=== PATIENT | male | born 1970 | race Caucasian/White ===

== ENCOUNTER 2018-03-25 10:01 | Inpatient (IN) ==
[2018-03-25] MEDS ORDERED: Naloxone 0.4 MG/ML INJ IVP PRN (12:55)
[2018-03-25] MEDS ORDERED: VANCOMYCIN IVPB SCH (13:00)
[2018-03-25] MEDS ORDERED: SODIUM CHLORIDE 0.9% IVPB SCH (13:00)
[2018-03-25] MEDS ORDERED: D5% in Water 1,000 ML IVC PRN (13:09)
[2018-03-25] MEDS ORDERED: Dextrose Gel 15 GM/37.5 ML TUBE PO PRN ×2 (13:09)
[2018-03-25] MEDS ORDERED: *HR* Dextrose 50 % in Water (Syg) 50 ML SYRINGE IVP PRN (13:09)
[2018-03-25] MEDS ORDERED: 0.9 % Sodium Chloride 1,000 ML IVC SCH (13:15)
--- NOTE | 2018-03-25 13:55 | Neurology - Consult Note ---
Date of Encounter: 03/26/18 Time of Encounter: 12:54 Assessment and Plan (1) Altered mental status Current Visit: Yes Status: Acute Patient continued to have mental status changes without any focal motor weakness on examination examined remains quite perplexing due to the fact that he does able to localize noxious stimuli also grimaces to the deep pain he did wake up from ammonia capsule yesterday but is still not following any commands and not responding to verbal stimuli. Even if it is metabolic toxic encephalopathy the pattern does not seems to fit to it on the other hand if it is a complex partial seizures or nonconvulsive seizures he should not be able to respond the way he is responding now but cannot be completely exclude eluded unless he had an EEG unfortunately due to the malfunction of EEG machine would not be able to do an EEG. I would recommend getting an MRI of the brain to exclude any other intracranial etiology and if all is negative and even after the dialysis if it did not show any improvement perhaps need repeat spinal tap at that was unsuccessful attempt earlier because of the movement as he continued to be moving now and I do not think that it be possible without sedation at the bedside. As currently he is moving a lot do not think we be able to do a bedside LP discussed with the nephrology they are going to dialyze him but at the same time we will try to get an MRI of the brain. r Qualifiers: Altered mental status type: unspecified Qualified Code(s): R41.82 - Altered mental status, unspecified History of Present Illness HPI: Mr. Esteban is a 48 year old male PMH of ESRD-on dialysis, dyslipidemia, hypertension admitted as being found on the floor at his home by his on monday afternoon. History was provided by as patient is arousable but very difficult to arouse and not following commands. per his , patient was in his usual state of health, got dialysis on monday and was watching tv on couch on monday afternoon, she says she left him for like an hour and came back to find him lying flat on the floor barely arousable. sugar was 68 per EMS. He was taken to [facility] where he had CT and received narcan with no improvement. He also got acyclovir and zosyn. An LP was attempted unsuccessfully. CT head was negative. He is able to protect his airways. pt remain non verbal but woke up with ammonia capsule but still did not respond to verbal , and didnt follow any commands Past Med Surg Social Fam HX - Past Medical History Medical history: diabetes, GERD, hyperlipidemia, hypertension, renal disease Additional medical history: KIDNEY FAILURE. CHEWS TOBACCO. STRESS TEST. CATARACTS. GLAUCOMA. DIALYSIS Psychiatric history: anxiety, depression - Past Surgical History Surgical History: other Additional surgical history: fistula. eye surgery, blind in R eye. COLONOSCOPY. L ARM AV ACCESS. EYE INJECTIONS - Social History Smoking Status: Never smoker Smokeless Tobacco Status: No Alcohol use: rarely Drug use: none Medications and Allergies Insulin ASPART [NovoLOG] 0 unit SQ AD PRN 09/25/15 [History] Atorvastatin [Lipitor] 40 mg PO HS 03/26/18 [History] Hydralazine HCl 100 mg PO TID 03/26/18 [History] Losartan Potassium [Cozaar] 100 mg PO DAILY 03/26/18 [History] NIFEdipine [Nifedipine ER] 60 mg PO BID 03/26/18 [History] 3 Allergy/AdvReac Type Severity Reaction Status Date / Time Amoxicillin Allergy Hives Verified 06/15/15 11:48 ROS unobtainable: due to mental status All Systems: The remainder of the systems were reviewed and are negative Physical Examination - Vital Signs Vital Signs: Initial Vital Signs Temp Pulse Resp BP Pulse Ox 98.4 F 103 14 155/93 94 03/25/18 12:45 03/25/18 12:45 03/25/18 12:45 03/25/18 12:45 03/25/18 12:45 - Exam Exam: GENERAL: Comfortable in no acute distress, laying in bed without any acute distress does not respond to verbal stimuli HEENT: Normal LUNGS: CTA HEART: RRR, S1 S2 Audible, no murmur EXTREMITIES: No Pedal edema. DETAILED NEUROLOGICAL EXAMINATION: MENTAL STATUS: Awake but does not respond to any verbal stimuli open eyes to the deep pain he did woke up with ammonia capsule opened eyes but did not responded. Pupils are equal and reactive no facial asymmetry. Cranial Nerve Examination: CN - II: Visual Acuity, Field of Vision Normal, Fundus examination: No disk edema, Pupils- size shape reaction to light and accommodation: All normal. CN III, IV, : External ocular movements were intact, Pupils were reactive, Nodrooping of the eyelids CN V: Sensation over the face to light touch and pinprick all normal. Corneal reflexes not tested, jaw jerk normal. CN VII: No facial asymmetry, no flattening of nasolabial folds, no difficulty in closing the eyes, no loss of forehead wrinkles, no difficulty in eye-closure, frowning raising eyebrows. Moving all 4 extremities to the deep pain and is a spontaneously as well as. - Constitutional General appearance: comfortable - Neurologic Reflex and gait examination: intact Reflexes: Biceps: 1+, Triceps: 1+, Brachioradialis: 1+, Patella: 1+, Achilles: 1 + Mental Status Examination: awake, localizes noxious stimulation, no spontaneous eye opening to voice or tactile stimulation, grimmacing, inattentive Cranial nerve examination: PERRL, EOMI, no facial asymmetry is present Results - Laboratory Findings CBC and BMP: 03/26/18 03:42 03/26/18 03:42 Consult Discharge Plan - Plan Referrals: Jud Diaz, DIRECTOR OF STUDENT AFFAIRS [Primary Care Provider] -
[2018-03-25] MEDS ORDERED: Levofloxacin 750 MG/150 ML 750 MG/150 ML BAG IVPB SCH (14:00)
--- NOTE | 2018-03-25 14:26 | Internal Med History&Physical ---
Date of Encounter: 03/25/18 Time of Encounter: 11:00 Internal Medicine - H&P: HPI Chief complaint: Altered mental status at home, found on the floor History of present illness: Mr. Esteban is a 48 year old male with pmh of ESRD-DD, dyslipidemia, hypertension presenting with complaints of being found on the floor at his home by his on monday. History was provided by as patient is arousable but very difficult to arouse and not following commands. per his , patient was in his usual state of health, got dialysis on monday and was watching tv on couch on monday, she says she left him for like an hour and came back to find him lying flat on the floor barely arousable. She recalls a similar episode about 5 years ago when he was hypoglycemic to 25 , but she says this time his sugar was 68 per EMS. she called 911 on finding him barely arousable. She says he doesn't take any drugs or alcohol. He was taken to [facility] where he was treated supportively, received narcan with no improvement in his status. He also got acyclovir and zosyn. An LP was attempted unsuccessfully. CT head was negative. HE was transferred here when he wasn't improving. HIs vitals are currently stable. He is able to protect his airways. HE was seen by neurology in ICU who was able to arouse him successfully by breaking an ammonium pill and making him sniff it. he is however still lethargic and non verbal Past Med Surg Social Fam HX - Past Medical History Medical history: diabetes, GERD, hyperlipidemia, hypertension, renal disease Additional medical history: KIDNEY FAILURE. CHEWS TOBACCO. STRESS TEST. CATARACTS. GLAUCOMA. DIALYSIS Psychiatric history: anxiety, depression - Past Surgical History Surgical History: other Additional surgical history: fistula. eye surgery, blind in R eye. COLONOSCOPY. L ARM AV ACCESS. EYE INJECTIONS - Social History Smoking Status: Never smoker Smokeless Tobacco Status: No Alcohol use: rarely Drug use: none Internal Medicine - H&P: Meds Atorvastatin [Lipitor] 20 mg PO HS 08/04/15 [History] Calcitriol [Rocaltrol] 0.25 mcg PO DAILY 08/04/15 [History] Carvedilol [Coreg] 25 mg PO BID 08/04/15 [History] Furosemide [Lasix] 20 mg PO BID 08/04/15 [History] Losartan [Cozaar] 100 mg PO DAILY 08/04/15 [History] hydrALAZINE [HydrALAZINE] 50 mg PO BID 08/04/15 [History] Insulin ASPART [NovoLOG] 0 unit SQ AD PRN 09/25/15 [History] 3 Allergy/AdvReac Type Severity Reaction Status Date / Time Amoxicillin Allergy Hives Verified 06/15/15 11:48 ROS unobtainable: due to mental status All Systems PM: A 10-system review of systems was performed and is negative for pertinent findings except as documented above in the HPI. - Constitutional Vitals: Temp Pulse Resp BP Pulse Ox 98.4 F 103 14 155/93 94 03/25/18 12:45 03/25/18 12:45 03/25/18 12:45 03/25/18 12:45 03/25/18 12:45 Exam: Not oriented to person or place. Arousable. GCS 8 - Head Head exam: Present: atraumatic, normocephalic - Eye Eye exam: Present: PERRL, conjuntiva pink, sclera anicteric Pupils: Present: PERRL - Neck Neck exam general surgery: Present: supple, trachea midline. Absent: lymphadenopathy - Respiratory Respiratory exam: Present: CTAB. Absent: accessory muscle use, rales, rhonchi, wheezes - Cardiovascular Cardiovascular exam: Present: RRR, +S1, +S2. Absent: diastolic murmur, gallop, rubs, systolic murmur - GI/Abdominal GI/Abdominal exam: Present: normal bowel sounds, soft, no peritoneal signs. Absent: distended, tenderness - Extremities Exam Extremities exam: Present: warm, radial pulses palpable and symmetrical. Absent : calf tenderness, cyanotic, pedal edema - Neurological Exam Neurological exam: Present: CN II-XII intact, no focal deficits. Absent: pronater drift, facial droop, speech deficit Additional comments: GCS 8 - Skin Skin exam: Present: dry, intact Internal Med - H&P Results - Labs CBC & Chem 7: 03/25/18 12:56 - Assessment and plan (1) Acute encephalopathy Current Visit: Yes Status: Acute Assessment and plan: Acute encephalopathy for about 20hrs now of unclear etiology. Query sepsis vs seizures vs stroke vs toxin ingestion. Obtain blood cultures, start on empiric antibiotics with vanc,levaquin , acyclovir. Obtain MRI head to r/o strokes. Neurology consulted and appreciate recs. Obtain EEG to r/o seizures. nephrology consulted. u tox requested but patient is anuric. Continue supportive care. ABG done at [facility] showed ph 7.48, Po2 69, Pco2 45 (2) ESRD on dialysis Current Visit: Yes Status: Acute Assessment and plan: Continue hemodialysis per schedule (3) Diabetes mellitus Current Visit: Yes Status: Acute Assessment and plan: Continue insulin Qualifiers: Diabetes mellitus type: type 2 Qualified Code(s): E11.9 - Type 2 diabetes mellitus without complications (4) DVT prophylaxis Current Visit: Yes Status: Acute Assessment and plan: Heparin sc - Time Spent With Patient Total time spent is greater than 50% in coordination of care (as documented) at patient's floor/unit and/or counseling patient:
[2018-03-25] MEDS: D5% in 0.45% NACL 1,000 ML IVC SCH (14:41)
[2018-03-25] MEDS ORDERED: Levofloxacin 750 MG/150 ML 750 MG/150 ML BAG IVPB ONE (14:45)
--- NOTE | 2018-03-25 15:10 | Nephrology Consult Note ---
Date of Encounter: 03/25/18 Time of Encounter: 14:00 Assessment and Plan (1) Acute encephalopathy Status: Acute Etiology unclear rule out infectious etiology vs medication induced (though not immediately clear what) Neurology ob board Can straight for urine or UDS and UA if any Not uremia, as well dialyzed Do not think HD would be helpful with his current state and can be in fact dangerous as we would not be able to cannulate and secure his access for HD while he is agitated (2) ESRD on dialysis Status: Acute L[facility] from [facility]. BUN noted 19 yesterday and then 28 today If pt is subdued by tomorrow, might be able to perform HD at that point History of Present Illness - Reason for Consult Consult date: 03/25/18 end stage renal disease Requesting physician: Veronica Vegas - History of Present Illness 48 y o male With PMH of DM, HTN, CAD and ESRD on HD well known to me as a result admitted to the ICU as a transfer from [facility] where he presented yesterday with altered mental status. According to , he received HD on monday and was his usual self till shefound him on the floor by the couch disoriented. CT head done was poor quality due to movements but unremarkable. She denies any new medications. He is very compliant with his HD treatments and does not miss. Pt seen and examined unable to communicate with me, keeps eyes closed but tries to get out of the bedside repeatedly Past Med Surg Social Fam HX - Past Medical History Medical history: diabetes, GERD, hyperlipidemia, hypertension, renal disease Additional medical history: KIDNEY FAILURE. CHEWS TOBACCO. STRESS TEST. CATARACTS. GLAUCOMA. DIALYSIS Psychiatric history: anxiety, depression - Past Surgical History Surgical History: other Additional surgical history: fistula. eye surgery, blind in R eye. COLONOSCOPY. L ARM AV ACCESS. EYE INJECTIONS - Social History Smoking Status: Never smoker Smokeless Tobacco Status: No Alcohol use: rarely Drug use: none Medications and Allergies Insulin ASPART [NovoLOG] 0 unit SQ AD PRN 09/25/15 [History] Atorvastatin [Lipitor] 40 mg PO HS 03/26/18 [History] Hydralazine HCl 100 mg PO TID 03/26/18 [History] Losartan Potassium [Cozaar] 100 mg PO DAILY 03/26/18 [History] NIFEdipine [Nifedipine ER] 60 mg PO BID 03/26/18 [History] 3 Allergy/AdvReac Type Severity Reaction Status Date / Time Amoxicillin Allergy Hives Verified 06/15/15 11:48 Review of Systems ROS unobtainable: due to mental status Exam - Vital Signs Vital signs: Initial Vital Signs Temp Pulse Resp BP Pulse Ox 98.4 F 103 14 155/93 94 03/25/18 12:45 03/25/18 12:45 03/25/18 12:45 03/25/18 12:45 03/25/18 12:45 Vital Signs - Last 8 Hours Temp Pulse Resp BP Pulse Ox 03/25/18 12:45 98.4 F 98 14 155/93 94 Intake and Output 03/24/18 03/25/18 03/25/18 23:59 07:59 15:59 Intake Total 0 / 0 Balance 0 / 0 Intake: Oral 0 / 0 Other: Weight 94.5 kg Blood Glucose* 203 Patient Weight 03/25/18 23:59 Weight 94.5 kg - General Appearance General appearance: well-developed, well-nourished EENT: ATNC, mucous membranes moist Neck: no JVD, supple Respiratory: clear (ant bilat) Cardiology: no edema, normal S1, normal S2 - Dialysis Access Dialysis Vascular Access: Arteriovenous Fistula thrill: Yes bruit: Yes Gastrointestinal: no tenderness, no guarding Integumentary: warm and dry Additional Comments: awake but keeps eyes closed and very restless, movements without purpose Musculoskeletal: no deformities Psychiatric: agitated Results - Lab Results 03/27/18 07:49 03/27/18 07:49 Consult Discharge Plan - Plan Instructions: Diabetes Mellitus Type 2 in Adults (DC) Referrals: Jud Diaz CNP [Primary Care Provider] -
[2018-03-25] MEDS: Insulin LISPRO 300 UNITS/3 ML VIAL SQ SCH (17:01)
[2018-03-25] MEDS: Furosemide 20 MG TABLET PO SCH (17:10)
[2018-03-25 17:23] LABS: Calcium 9.1 mg/dL (8.6-10.3); Potassium 4.6 mEq/L (3.5-5.1)
[2018-03-25 19:39] LABS: Basophils # 0.1 K/mcL (0.0-0.2); Basophils % 0.5 %; Eosinophils # 0.1 K/mcL (0.0-0.6); Eosinophils % 0.4 %; Hematocrit 32.1 % (37.5-50.1); Hemoglobin 10.7 g/dL (12.9-16.9); Immature Granulocytes % 0.6 % (0-4); Lymphocytes # 0.7 K/mcL (0.6-4.6); Lymphocytes % 5.2 %; Mean Corpuscular HGB Conc 33.3 g/dL (31.6-35.5); Mean Corpuscular Hemoglobin 30.9 pg (28.0-33.3); Mean Corpuscular Volume 92.8 fL (83.0-100.0); Mean Platelet Volume 9.6 fL (9.4-12.4); Monocytes # 0.6 K/mcL (0.0-1.3); Monocytes % 4.3 %; Neutrophils # 11.9 K/mcL (1.6-8.9); Platelet Count 267 K/mcL (140-400); Red Blood Count 3.46 M/mcL (4.19-5.50); Red Cell Distribution Width 16.1 % (11.5-14.5)
[2018-03-25] MEDS: hydrALAZINE 25 MG TABLET PO SCH (20:56)
[2018-03-26] MEDS ORDERED: Insulin LISPRO 300 UNITS/3 ML VIAL SQ SCH (00:15)
[2018-03-26] MEDS: D5% in 0.45% NACL 1,000 ML IVC SCH ×2 (01:48→13:49)
[2018-03-26 04:10] LABS: Basophils % 0.3 %; Eosinophils # 0.1 K/mcL (0.0-0.6); Eosinophils % 0.8 %; Hematocrit 31.4 % (37.5-50.1); Hemoglobin 10.2 g/dL (12.9-16.9); Immature Granulocytes % 0.2 % (0-4); Lymphocytes # 0.8 K/mcL (0.6-4.6); Lymphocytes % 6.1 %; Mean Corpuscular HGB Conc 32.5 g/dL (31.6-35.5); Mean Corpuscular Hemoglobin 30.1 pg (28.0-33.3); Mean Corpuscular Volume 92.6 fL (83.0-100.0); Mean Platelet Volume 9.8 fL (9.4-12.4); Monocytes # 0.9 K/mcL (0.0-1.3); Monocytes % 6.6 %; Neutrophils # 11.2 K/mcL (1.6-8.9); Nucleated Red Blood Cells 0.2 /100 WBC (0); Platelet Count 272 K/mcL (140-400); Red Blood Count 3.39 M/mcL (4.19-5.50); Red Cell Distribution Width 16.5 % (11.5-14.5)
[2018-03-26 04:27] LABS: Magnesium 2.4 mg/dL (1.6-2.6); Potassium 4.1 mEq/L (3.5-5.1)
[2018-03-26] MEDS ORDERED: 0.9 % Sodium Chloride 250 ML IVC PRN (07:33)
[2018-03-26] MEDS ORDERED: 0.9 % Sodium Chloride 1,000 ML PRIME SCH (07:45)
[2018-03-26] MEDS ORDERED: 0.9 % Sodium Chloride 1,000 ML ONE (07:51)
[2018-03-26] MEDS: Insulin LISPRO 300 UNITS/3 ML VIAL SQ SCH ×4 (08:10→23:22)
[2018-03-26] MEDS: Furosemide 20 MG TABLET PO SCH ×2 (08:10→18:59)
[2018-03-26] MEDS: hydrALAZINE 25 MG TABLET PO SCH ×2 (08:11→20:14)
--- NOTE | 2018-03-26 11:37 | Nephrology Progress Note ---
Date of Encounter: 03/26/18 Time of Encounter: 11:34 - Assessment and Plan (1) ESRD on dialysis Current Visit: Yes Status: Acute HD MWF. Renal vitamins. Renal dose medications. Renal diet. Additional dialysis and ultrafiltration as needed. She was seen on dialysis. Second day to his encephalopathy the patient is not following instructions. There was a danger in him dislodging his dialysis needles so I ordered restraints to be used for his safety as well as for the ability to provide care. (2) Acute encephalopathy Current Visit: Yes Status: Acute (3) Diabetes mellitus Current Visit: Yes Status: Acute Qualifiers: Diabetes mellitus type: type 2 Qualified Code(s): E11.9 - Type 2 diabetes mellitus without complications Subjective Principal diagnosis: ESRD Interval history: Patient seen on dialysis. He is alert, but not oriented. He does not respond to verbal commands. Objective - Vital Signs Vital signs: Vital Signs Temp Pulse Resp BP Pulse Ox 03/26/18 09:10 98.4 F 98 17 147/75 95 03/26/18 08:00 97.9 F 96 14 106/57 94 03/26/18 07:18 97.9 F 03/26/18 06:00 101 14 111/55 98 03/26/18 05:00 98 16 136/66 97 03/26/18 04:00 98.1 F 101 18 160/93 98 03/26/18 03:30 103 20 161/83 98 03/26/18 02:00 104 18 152/93 98 03/26/18 01:00 96 16 104/67 97 03/26/18 00:00 98.5 F 97 18 92/52 97 03/25/18 23:20 92 03/25/18 23:00 98 18 107/70 96 03/25/18 22:00 94 16 95/51 98 03/25/18 21:00 98 17 155/77 97 03/25/18 20:00 99.6 F 101 18 159/89 97 03/25/18 19:56 101 03/25/18 19:00 99 16 136/69 92 03/25/18 17:00 108 14 111/96 94 03/25/18 15:52 99.4 F 03/25/18 15:00 96 14 108/67 94 03/25/18 12:45 98.4 F 98 14 155/93 94 Intake and Output 03/25/18 03/26/18 03/26/18 23:59 07:59 15:59 Intake Total 150 / 150 0 / 0 600 / 600 Output Total 0 / 0 0 / 0 Balance 150 / 150 0 / 0 600 / 600 Intake: IV Fluids 150 / 150 Levaquin Premix 750mg/150 mL 150 / 150 750 mg In 150 ml @ 100 mls/hr IVPB ONCE ONE Rx#:[id number] Oral 0 / 0 0 / 0 0 / 0 Intake, Rinseback and Flushes 600 / 600 Output: Urine 0 / 0 0 / 0 Other: Weight 91.1 kg Blood Glucose* 235 272 Hemodialysis Net Fluid Removed 0 (mL) Patient Weight 03/26/18 23:59 Weight 91.1 kg - General Appearance General appearance: Present: well-developed, well-nourished EENT: Present: ATNC Neck: Present: supple Respiratory: Present: course breath sounds Cardiology: Present: no edema, regular rate Dialysis Vascular Access: Arteriovenous Fistula Neurologic: Present: confused, disoriented Psychiatric: Present: agitated - Lab 03/26/18 03:42 03/26/18 03:42 Most recent lab results Calcium 9.0 mg/dL (8.6-10.3) 03/26/18 03:42 Phosphorus 4.0 mg/dL (2.7-4.5) 03/26/18 03:42 Magnesium 2.4 mg/dL (1.6-2.6) 03/26/18 03:42 Consult Discharge Plan - Plan Referrals: Jud Diaz CNP [Primary Care Provider] -
[2018-03-26 12:47] LABS: Hepatitis B Surface Antigen Nonreactive (Nonreactive)
[2018-03-26 12:48] LABS: Hepatitis B Surface Antibody 44.23 mIU/mL
[2018-03-26] MEDS ORDERED: D5% in Water 1,000 ML IVC PRN (15:29)
--- NOTE | 2018-03-26 15:57 | Neurology Progress Note ---
Date of Encounter: 03/26/18 Time of Encounter: 07:30 Assessment and Plan (1) Altered mental status Current Visit: Yes Status: Acute Patient continued to have mental status changes without any focal motor weakness on examination examined remains quite perplexing due to the fact that he does able to localize noxious stimuli also grimaces to the deep pain he did wake up from ammonia capsule yesterday but is still not following any commands and not responding to verbal stimuli. Even if it is metabolic toxic encephalopathy the pattern does not seems to fit to it on the other hand if it is a complex partial seizures or nonconvulsive seizures he should not be able to respond the way he is responding now but cannot be completely exclude eluded unless he had an EEG unfortunately due to the malfunction of EEG machine would not be able to do an EEG. I would recommend getting an MRI of the brain to exclude any other intracranial etiology and if all is negative and even after the dialysis if it did not show any improvement perhaps need repeat spinal tap at that was unsuccessful attempt earlier because of the movement as he continued to be moving now and I do not think that it be possible without sedation at the bedside. We will follow the patient with you , in the meantime continue him on antibiotics as well as acyclovir Qualifiers: Altered mental status type: unspecified Qualified Code(s): R41.82 - Altered mental status, unspecified Subjective Principal diagnosis: ESRD Interval history: Patient seen as an follow-up he remain unresponsive to any verbal stimuli but he is responding to the painful stimuli no significant change as compared to yesterday. He is scheduled for dialysis today as well as for possible MRI still moving a lot and not to able to lay down his straight Tried EEG yesterday but not able to do so because of the malfunction of the machine Objective - Constitutional Vitals: Temp Pulse Resp BP Pulse Ox 98 F 101 15 135/74 98 03/26/18 13:53 03/26/18 12:20 03/26/18 12:20 03/26/18 13:53 03/26/18 12:20 - Neurological Exam Motor examination - right side: 4/5: deltoids, biceps, triceps, wrist flexion, wrist extension, solutions developer, hip flexors, tibialis Anterior, quadriceps, toe extension (EHL), plantarflexion Motor examination - left side: 4/5: deltoids, biceps, triceps, wrist flexion, wrist extension, hip flexors, solutions developer, quadriceps, tibialis Anterior, toe extension (EHL), plantarflexion Sensation intact: Present: intact Reflexes: Biceps: 1+, Triceps: 1+, Brachioradialis: 1+, Patella: 1+, Achilles: 1 + Mental Status Examination: Present: does not follow commands, lethargic, agitated, opens eyes to noxious stimulation, localizes noxious stimulation, grimmacing Cranial nerve examination: Present: PERRL, no facial asymmetry is present Results - Laboratory Findings CBC and BMP: 03/26/18 03:42 03/26/18 03:42 Abnormal lab findings: Abnormal lab results WBC 13.1 K/mcL (4.3-11.1) H 03/26/18 03:42 RBC 3.39 M/mcL (4.19-5.50) L 03/26/18 03:42 Hgb 10.2 g/dL (12.9-16.9) L 03/26/18 03:42 Hct 31.4 % (37.5-50.1) L 03/26/18 03:42 RDW 16.5 % (11.5-14.5) H 03/26/18 03:42 Neutrophils # 11.2 K/mcL (1.6-8.9) H 03/26/18 03:42 Nucleated RBCs/100 WBC 0.2 /100 WBC (0) H 03/26/18 03:42 Sodium 132 mEq/L (136-145) L 03/26/18 03:42 Chloride 90 mEq/L (98-107) L 03/26/18 03:42 Carbon Dioxide 20 mEq/L (23-29) L 03/26/18 03:42 BUN 46 mg/dL (6-20) H 03/26/18 03:42 Creatinine 8.66 mg/dL (0.70-1.30) H 03/26/18 03:42 Est GFR ( Amer) 8 (> 60) L 03/26/18 03:42 Est GFR (Non-Af Amer) 7 (> 60) L 03/26/18 03:42 BUN/Creatinine Ratio 5 (6-26) L 03/26/18 03:42 Glucose 288 mg/dL (70-105) H 03/26/18 03:42 POC Glucose 304 mg/dL (70-99) H 03/25/18 23:34 Consult Discharge Plan - Plan Referrals: Jud Diaz, MAUREEN [Primary Care Provider] -
[2018-03-26] MEDS ORDERED: *HR* LORazepam 2 MG/ML VIAL IVP ONE (17:49)
[2018-03-26] MEDS ORDERED: *HR* LORazepam 2 MG/ML VIAL ONE (17:50)
[2018-03-26] MEDS ORDERED: Vancomycin 500 MG in 0.9 % Sodium Chloride Mini Bag 100 ML IVPB ONE (18:00)
--- NOTE | 2018-03-26 18:28 | Internal Med Progress Note ---
Date of Encounter: 03/26/18 Time of Encounter: 11:00 - Assessment and plan (1) Acute encephalopathy Current Visit: Yes Status: Acute Assessment and plan: Per who was at bedside, patient's last well known time was over 24 hours. Patient on exam only arousable to painful stimuli Stat CT of the head was ordered which showed no acute findings; MRI pending Lumbar puncture was done and results pending Neurology consulted with recommendations for EEG however machine out of order Continue empiric antibiotics with vanc,levaquin , acyclovir. (2) ESRD on dialysis Current Visit: Yes Status: Acute Assessment and plan: Continue hemodialysis per schedule Nephrology following and appreciate recommendations (3) Diabetes mellitus Current Visit: Yes Status: Acute Assessment and plan: Will hold insulin due to patient's altered mental status and NPO Qualifiers: Diabetes mellitus type: type 2 Qualified Code(s): E11.9 - Type 2 diabetes mellitus without complications (4) DVT prophylaxis Current Visit: Yes Status: Acute Assessment and plan: SCDs - Time Spent With Patient Total time spent is greater than 50% in coordination of care (as documented) at patient's floor/unit and/or counseling patient: - Subjective Interval history: Patient on exam only responsive to painful stimuli CT of the head was ordered in addition to MRI. Lumbar puncture was also ordered. - Constitutional Vitals: Temp Pulse Resp BP Pulse Ox 98.3 F 94 18 104/57 94 03/26/18 17:18 03/26/18 17:18 03/26/18 17:18 03/26/18 17:18 03/26/18 17:18 General appearance: Present: A&O X 0. Absent: answers questions appropriately - Neurological Exam Neurological exam: Present: altered Internal Medicine: Result - Labs CBC & Chem 7: 03/26/18 03:42 03/26/18 03:42 Labs: Short CBC 03/25/18 03/26/18 Range/Units 19:23 03:42 WBC 13.4 H 13.1 H (4.3-11.1) K/mcL Hgb 10.7 L 10.2 L (12.9-16.9) g/dL Hct 32.1 L 31.4 L (37.5-50.1) % Plt Count 267 272 (140-400) K/mcL Neutrophils # 11.9 H 11.2 H (1.6-8.9) K/mcL BMP 03/26/18 03:42 Sodium 132 L Potassium 4.1 Chloride 90 L Carbon Dioxide 20 L BUN 46 H Creatinine 8.66 H Glucose 288 H Calcium 9.0 - Impressions Impressions Head CT 03/26/18 14:03 IMPRESSION: No acute intracranial abnormality. D/ / 03/26/2018 15:17:41 Jona Noble MD / [facility] Interpreting Provider: Jona Noble MD Consult Discharge Plan - Plan Referrals: Jud Diaz, W[employer] DES[employer] [Primary Care Provider] -
[2018-03-26] MEDS: ACYCLOVIR IVPB SCH (19:01)
[2018-03-26] MEDS: D5 IVPB SCH (19:01)
[2018-03-26] MEDS: WATER IVPB SCH (19:01)
[2018-03-26 19:10] LABS: Red Blood Cell,CSF < 0.002 M/mcL
[2018-03-26 19:11] LABS: Appearance,CSF Clear (Clear)
[2018-03-26 19:28] LABS: Glucose,CSF 136 mg/dL (40-70); Total Protein,CSF 34 mg/dL (15-45)
[2018-03-27] MEDS: Insulin LISPRO 300 UNITS/3 ML VIAL SQ SCH ×3 (06:42→18:03)
[2018-03-27] MEDS: Furosemide 20 MG TABLET PO SCH ×2 (07:52→17:23)
[2018-03-27] MEDS: hydrALAZINE 25 MG TABLET PO SCH (07:52)
[2018-03-27 08:06] LABS: Hematocrit 31.9 % (37.5-50.1); Hemoglobin 10.2 g/dL (12.9-16.9); Mean Corpuscular Hemoglobin 30.5 pg (28.0-33.3); Mean Corpuscular Volume 95.5 fL (83.0-100.0); Mean Platelet Volume 9.9 fL (9.4-12.4); Platelet Count 230 K/mcL (140-400); Red Blood Count 3.34 M/mcL (4.19-5.50); Red Cell Distribution Width 16.5 % (11.5-14.5)
[2018-03-27 08:42] LABS: Calcium 8.9 mg/dL (8.6-10.3); Potassium 4.6 mEq/L (3.5-5.1)
[2018-03-27] MEDS ORDERED: Levofloxacin 500 MG/100 ML 500 MG/100 ML BAG IVPB SCH (09:00)
[2018-03-27] MEDS: D5% in 0.45% NACL 1,000 ML IVC SCH (13:17)
--- NOTE | 2018-03-27 14:39 | EEG/EMG/Oth Biometrics Report ---
EEG Procedure Report Date of procedure: 03/27/18 EEG Procedure: Routine EEG Procedure Note: This is a routine 21 channel digital EEG performed utilizing 10- 20 international electrode placement system. FINDINGS: Patient has a predominant waking background frequency that is average voltage 6 TO 8 Hertz in the posterior region, normal amplitude symmetrical over the both hemispheres reactive to eyes opening and closing record continued to show alpha activity intermixed with some theta off and on, no abnormal activity recorded, predominantly no evidence of any spike wave discharges or any lateralizing abnormalities, Photic stimulation and hyperventilation did not produce any convulsive response. Intermittent EMG artifacts were noted. Stage II sleep was not achieved. Impression: Mild slowing , could be seen in Metabolic encephalopathy, , No epileptiform discharges or any other paroxysmal activities noted. ( Please note that normal EEG does not exclude the diagnosis of seizures or epilepsy, clinical correlation is suggested)
--- NOTE | 2018-03-27 14:45 | Neurology Progress Note ---
Date of Encounter: 03/27/18 Time of Encounter: 11:00 Assessment and Plan (1) Altered mental status Current Visit: Yes Status: Acute Patient continued to have mental status changes without any focal motor weakness on examination examined remains quite perplexing due to the fact that he does able to localize noxious stimuli also grimaces to the deep pain he did wake up from ammonia capsule yesterday but is still not following any commands and not responding to verbal stimuli. So far this patient workup including MRI of the brain, CSF analysis, and EEG all has been negative. No sign of this nonconvulsive status on EEG He remain unresponsive to any verbal stimuli at the same time not able to have any purposeful movement neither any purposeful conversation. I did use the ammonia capsule today , he did open the eyes but again did not responded verbally not able to have any conversation with the family's remain unresponsive with open eyes stared appearance and semi-purposeful movements His symptoms seems to be more off catatonic-type As commonly seen with immobility, mutism, staring, rigidity, Other possibilities that could be seen in other encephalopathies like Davis' s, less likely neuroleptic malignant syndrome or serotonin as clinically he does not have any features off it. And certainly psychological behavioral component cannot be completely excluded. may need to look into that as well As is been more than 3 days and patient to has not shown any improvement and all workup has been negative at this time I would recommend that patient should be transferred to a tertiary care center for further workup and evaluation and treatment Qualifiers: Altered mental status type: unspecified Qualified Code(s): R41.82 - Altered mental status, unspecified Subjective Principal diagnosis: ESRD Interval history: Patient seen as an follow-up he remain unresponsive to any verbal stimuli but he is responding to the painful stimuli no significant change as compared to yesterday. Overall significant changes his mental status patient did have an a spinal tap that did not show any sign of flow meningitis WBC RBC and Proteus were all within normal limits Gram stain is been negative. MRI of the brain also was reviewed and his was also within normal limits and no evidence of any acute infarct or any other abnormality noted. EEG also did not show any significant seizure activity, only minimal slowing noted but without any evidence of status or any other abnormality Objective - Constitutional Vitals: Temp Pulse Resp BP Pulse Ox 98.6 F 91 20 105/57 97 03/27/18 13:31 03/27/18 13:31 03/27/18 13:31 03/27/18 13:31 03/27/18 13:31 - Neurological Exam Motor Examination: Present: grossly full strength in all extremities Motor examination - left side: 4/5: deltoids, biceps, triceps, wrist flexion, wrist extension, hip flexors, director of global talent, quadriceps, tibialis Anterior, toe extension (EHL), plantarflexion Sensation intact: Present: intact Reflex and gait examination: intact Mental Status Examination: Present: awake, localizes noxious stimulation, no spontaneous eye opening to voice or tactile stimulation, grimmacing, inattentive Cranial nerve examination: Present: PERRL, EOMI, no facial asymmetry is present Results - Laboratory Findings CBC and BMP: 03/27/18 07:49 03/27/18 07:49 Abnormal lab findings: Abnormal lab results RBC 3.34 M/mcL (4.19-5.50) L 03/27/18 07:49 Hgb 10.2 g/dL (12.9-16.9) L 03/27/18 07:49 Hct 31.9 % (37.5-50.1) L 03/27/18 07:49 RDW 16.5 % (11.5-14.5) H 03/27/18 07:49 Neutrophils # 11.2 K/mcL (1.6-8.9) H 03/26/18 03:42 Nucleated RBCs/100 WBC 0.2 /100 WBC (0) H 03/26/18 03:42 Chloride 94 mEq/L (98-107) L 03/27/18 07:49 Carbon Dioxide 19 mEq/L (23-29) L 03/27/18 07:49 BUN 31 mg/dL (6-20) H 03/27/18 07:49 Creatinine 6.69 mg/dL (0.70-1.30) H 03/27/18 07:49 Est GFR ( Amer) 11 (> 60) L 03/27/18 07:49 Est GFR (Non-Af Amer) 9 (> 60) L 03/27/18 07:49 BUN/Creatinine Ratio 5 (6-26) L 03/27/18 07:49 Glucose 268 mg/dL (70-105) H 03/27/18 07:49 POC Glucose 242 mg/dL (70-99) H 03/26/18 22:57 CSF Glucose 136 mg/dL (40-70) H 03/26/18 18:33 Consult Discharge Plan - Plan Referrals: Jud Diaz CNP [Primary Care Provider] -
[2018-03-27] MEDS: D5 IVPB SCH (17:24)
[2018-03-27] MEDS: WATER IVPB SCH (17:24)
[2018-03-27] MEDS: ACYCLOVIR IVPB SCH (17:24)
--- NOTE | 2018-03-27 17:24 | Discharge Summary ---
- NOTES TO OUTPATIENT PROVIDER Notes to Outpatient Provider: Acute encephalopathy- unknown etiology Orders not resulted at time of discharge: Pending orders 03/25/18 13:06 Urine tox screen [Drug Screen, Urine] [UCHEM] Routine 03/25/18 16:40 Culture,Blood [BC] Routine 03/26/18 09:24 Cytomegalovirus IgG IgM Routine 03/26/18 18:33 AFB Culture, Body Fluid [TB] Routine AFB Smear [TB] Routine Borrelia burgdorferi Panel CSF Routine Culture,CSF [RM] Routine Fungal Culture [MYC] Routine HSV 1 Glycoprotein G IgG CSF Routine HSV 2 Glycoprotein G IgG CSF Routine Toxoplasma gondii PCR Routine VDRL reflex titer, CSF Routine VDRL reflex titer, CSF Routine Varicella-Zoster Virus PCR Routine 03/28/18 04:00 BMP [Basic Metabolic Panel] AM 0400 Complete Blood Count w/o Diff [HEME] AM 0400 Vancomycin,Random AM 0400 03/29/18 04:00 BMP [Basic Metabolic Panel] AM 0400 Complete Blood Count w/o Diff [HEME] AM 0400 03/30/18 04:00 BMP [Basic Metabolic Panel] AM 0400 Complete Blood Count w/o Diff [HEME] AM 0400 03/31/18 04:00 BMP [Basic Metabolic Panel] AM 0400 Complete Blood Count w/o Diff [HEME] AM 0400 04/01/18 04:00 BMP [Basic Metabolic Panel] AM 0400 Complete Blood Count w/o Diff [HEME] AM 0400 Date of Encounter: 03/27/18 Time of Encounter: 14:30 - Discharge Diagnosis (1) Acute encephalopathy Priority: Primary Status: Acute (2) ESRD on dialysis Priority: Secondary Status: Acute (3) Diabetes mellitus Priority: Secondary Status: Chronic Qualifiers: Diabetes mellitus type: type 2 Diabetes mellitus web developer insulin use: with web developer use Diabetes mellitus complication status: with kidney complications Diabetes mellitus complication detail: with chronic kidney disease Chronic kidney disease stage: on chronic dialysis Qualified Code(s) : E11.22 - Type 2 diabetes mellitus with diabetic chronic kidney disease; N18.6 - End stage renal disease; 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 Esteban is a 48 year old male with the above medical problems, who was brought in with sudden onset of altered mental status and having been found unconscious and minimally responsive by his at home. CT head, initial labs showed no acute abnormality. Neurology was consulted who recommended MRI brain and lumbar puncture and EEG to r/o- mass effects, stroke, infection, subclinical seizures. 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 patient was empirically started on IV Vancomycin, Levaquin and Acyclovir. CSF was clear with no significant cell count, no elevated protein, normal glucose. Viral serologies pending. EEG showed mild diffuse slowing due to metabolic encephalopathy, but no e/o- seizures. Nephrology was consulted and he did receive regular HD sessions. At this point, patient's mental status showed no improvement, he is still unconscious, responding only to deep painful stimuli, no purposeful movements or communication; case was d/w Neurology and patient is being transferred to [facility] for higher level of care due to negative workup and no change in clinical condition. family is in agreement. Discharge discussed with: family, nurse, business consultant - Time Spent with Patient Total time spent providing and/or coordinating discharge services: Greater than 30 minutes (45 min) - Discharge Medications Home Medications: Insulin ASPART [NovoLOG] 0 unit SQ AD PRN 09/25/15 [History] Atorvastatin [Lipitor] 40 mg PO HS 03/26/18 [History] Hydralazine HCl 100 mg PO TID 03/26/18 [History] Losartan Potassium [Cozaar] 100 mg PO DAILY 03/26/18 [History] NIFEdipine [Nifedipine ER] 60 mg PO BID 03/26/18 [History] Allergies/Adverse Reactions: 3 Allergy/AdvReac Type Severity Reaction Status Date / Time Amoxicillin Allergy Hives Verified 06/15/15 11:48 Date of admission: 03/25/18 12:34 Primary care physician: Jud Diaz CNP Consults: 03/25/18 13:02 Consult to Neurology [CONS] Routine Consulting Provider: [facility] Reason for Consult: altered mental status Call Completed: Yes 03/25/18 13:03 Consult to Nephrology [CONS] Routine Consulting Provider: [facility]JOVANY/CARMEN/LINSEY Reason for Consult: [id number] Call Completed: Yes 03/26/18 07:45 Consult to Dialysis [CONS] ONCE 03/26/18 16:01 Consult to Interventional Radiology [CONS] Stat Consulting Provider: Radiology Interventional [facility] Reason for Consult: Altered mental status concern for meningitis Time Notified: 15:30 Call Completed: Yes 03/27/18 13:35 Consult to Interpret Exam [CONS] Routine Consulting Provider: Sage Leiva I Consult to Interpret Exam: Interpret EEG Discharging clinician: Yoanna Masterson Anticipated date of discharge: 03/27/18 - Constitutional Vitals: Temp Pulse Resp BP Pulse Ox 99.2 F 106 24 174/85 96 03/27/18 16:59 03/27/18 16:59 03/27/18 16:59 03/27/18 16:59 03/27/18 16:59 General appearance: Present: A&O X 0. Absent: answers questions appropriately - Cardiovascular Cardiovascular exam: Present: RRR, +S1, +S2. Absent: diastolic murmur, gallop, rubs, systolic murmur - Neurological Exam Neurological exam: Present: altered. Absent: pronater drift, facial droop, speech deficit Additional comments: grimaces and localizes to deep painful stimulus, opens eyes to ammonia inhalation; no other purposeful movements or responses - Patient Status Disposition: Transfer Other Condition: Serious Functional capacity at discharge: bed bound Overall status at discharge: patient is not back to baseline - Discharge Instructions Instructions: Diabetes Mellitus Type 2 in Adults (DC) Follow Up With: Jud Diaz CDL B DRIVER [Primary Care Provider] - Forms: Inpatient Work/School Release
[2018-03-27] MEDS ORDERED: Aminoglycoside Consult 1 EACH MC ONE (19:08)
[2018-03-27 23:16] VITALS: BP 174/85
[2018-03-29 08:37] LABS: Borrelia burgdorferi Abs CSF 0.07 LIV (<=0.99)
[2018-03-31 03:58] LABS: Toxoplasma gondii Source CSF
[2018-03-31 10:23] LABS: Toxoplasma gondii PCR NOT DETECTED
== END 2018-03-27 19:09 | disposition other institution (70) | DRG 70 ==
LOC: ICNU 12:34 → SUATTDRO 12:34 → 2SOUTHHOLD 03-26 09:04
PROVIDERS: ADMIT Student in an Organized Health Care Education/Training Program; ATTEND Internal Medicine